=== PATIENT | male | born 1925 | race Caucasian/White ===

== ENCOUNTER 2017-08-24 15:55 | Inpatient (IN) ==
--- NOTE | 2017-08-24 16:54 | Emergency Department Note ---
Disposition Clinical Impression: CHF exacerbation Qualifiers: Heart failure type: unspecified Qualified Code(s): I50.9 - Heart failure, unspecified Chest pain Qualifiers: Chest pain type: unspecified Qualified Code(s): R07.9 - Chest pain, unspecified Disposition: Admitted As Inpatient Condition: Fair Referrals: Irving Gilbert DO [Primary Care Provider] - Forms: ED Satisfaction Letter Time of Disposition: 18:36 SOB HPI - General Chief Complaint: ED Shortness of Breath/Dyspnea Stated Complaint: SIGIFREDO, BI-LATERAL LEG EDEMA Time Seen by Provider: 08/24/17 16:30 Source: patient, family Mode of arrival: ambulatory Limitations: no limitations Nursing Notes Reviewed: Yes Vital Signs Reviewed: Yes - History of Present Illness Patient is an 89-year-old male who presents to [facility] ED with worsening difficulty breathing over the last day. Denies any nausea, vomiting, fever or chills. No recent cough or cold. Patient does have a history of congestive heart failure and quadruple bypass. States he had some chest pain yesterday. No current chest pain or shortness of breath with sitting. He is at 91% at rest. States he cannot take more than 10 steps without getting very short of breath. No abdominal pain, problems with urination or bowel movements. Patient states he was recently taken off multiple medications including lisinopril, metoprolol, hydrochlorothiazide. Pt Subjective Complaint: shortness of breath Onset (ago): day(s) Context: recent illness Severity: moderate Consistency/Duration: gradually worsening (1) Improves with: rest Worsens with: exertion Known history of: congestive heart failure Associated symptoms: Reports: chest pain. Denies: fever, cough, wheezing, nausea/vomiting, abdominal pain Treatment prior to arrival: none Cough present: No - Related Data Home oxygen amount: none Home Medications Medication Instructions Recorded Confirmed Tamsulosin [Flomax] 0.4 mg PO QAM 05/20/15 08/24/17 Acetaminophen [Tylenol] 650 mg PO QAM 08/24/17 08/24/17 Cholecalciferol (D-3) [Vitamin D] 1,000 unit PO DAILY 08/24/17 08/24/17 Ferrous Sulfate [Iron] 325 mg PO QAM 08/24/17 08/24/17 Omeprazole [PriLOSEC] 20 mg PO QAM 08/24/17 08/24/17 Allergies Allergy/AdvReac Type Severity Reaction Status Date / Time No Known Allergies Allergy Verified 05/19/15 18:15 All systems ED: reviewed and negative except as stated. Past Medical History - Past Medical History Attestation: Yes The following information was validated with the patient. Source: patient Medical history: Reports: arthritis, CHF, COPD, coronary artery disease, diabetes, GERD, GI bleed, hyperlipidemia, hypertension, myocardial infarction, osteoporosis, renal disease, venous stasis, other Surgical history: Reports: coronary bypass (CABG), herniorrhaphy, other (EGD. Colonoscopy.) Psychiatric history: Reports: no psych history - Social History Smoking Status: Never smoker Smokeless Tobacco Status: No Alcohol use: Reports: none Drug use: Reports: none Physical Exam - General Limitations: no limitations General appearance: alert - Head Head exam: atraumatic, normocephalic, normal inspection - Eye Eye exam: Present: normal appearance, EOMI - ENT ENT exam: normal exam, normal oropharynx, mucous membranes moist - Neck Neck exam: Present: normal inspection, full ROM, trachea midline - Chest Chest inspection: Present: normal inspection, symmetric chest wall rise - Respiratory Respiratory exam: Present: wheezes (Skin expiratory wheezes bilaterally) - Cardiovascular Cardiovascular exam: Present: regular rate, normal rhythm, normal heart sounds - Abdominal Exam Abdominal exam: Present: soft, Non-Tender. Absent: tenderness, distention, guarding, rebound, rigidity - Extremities Exam Extremities exam: Present: normal inspection, full ROM. Absent: tenderness, pedal edema - Neurological Exam Neurological exam: Present: alert, oriented X3 - Psychiatric Psychiatric exam: Present: normal affect, normal mood - Skin Skin exam: Present: warm, dry, intact, normal color Course Course Narrative: Patient seen and examined. Difficulty breathing over the last day. Patient with history of congestive heart failure. Suspect this is likely what is going on since he has had worsening lower extremity edema. Was also recently taken off his DEAN inhibitor, Metoprolol and HCTZ by his PCP. States they checked some test and then called him to take him off medications 2 or 3 weeks ago. Cardiopulmonary workup initiated. - Reevaluation(s) Reevaluation #1: Chest x-ray shows some pulmonary vascular congestion. BNP level was elevated in the 400s. Suspect congestive heart failure worsening. Since patient had an episode of chest pain yesterday, we will go ahead and admit for ACS workup as well as CHF exacerbation. I discussed with hospitalist Dr. Harris who has accepted patient for admission pending telemetry availability. I discussed with the management and there is telemetry beds available. Time: 18:35 Vital Signs Temperature 97.9 F 08/24/17 15:56 Pulse Rate 85 08/24/17 15:56 Respiratory Rate 19 08/24/17 15:56 Blood Pressure 181/98 08/24/17 15:56 O2 Sat by Pulse Oximetry 91 08/24/17 15:56 Temperature 97.9 F 08/24/17 15:56 Pulse Rate 69 08/24/17 18:25 Respiratory Rate 20 08/24/17 18:25 Blood Pressure 168/92 08/24/17 18:25 O2 Sat by Pulse Oximetry 96 08/24/17 18:25 Oxygen Delivery Oxygen Delivery Room Air Shortness of Breath/Dyspnea - Medical Records Medical records reviewed: Yes I reviewed the patient's medical records. - Lab Data Lab results reviewed: Yes I reviewed the patient's lab results. Result diagrams: 08/24/17 16:35 08/24/17 16:35 Lab Results 08/24/17 08/24/17 08/24/17 Range/Units 16:35 16:35 16:35 WBC 6.3 (4.3-11.1) K/mcL RBC 3.97 L (4.19-5.50) M/mcL Hgb 12.3 L (12.9-16.9) g/dL Hct 37.1 L (37.5-50.1) % MCV 93.5 (83.0-100.0) fL MCH 31.0 (28.0-33.3) pg MCHC 33.2 (31.6-35.5) g/dL RDW 12.3 (11.5-14.5) % Plt Count 140 (140-400) K/mcL MPV 9.9 (9.4-12.4) fL Immature Gran % 0.3 (0-4) % Seg Neutrophils % 69.9 % Lymphocytes % 17.3 % Monocytes % 9.8 % Eosinophils % 2.1 % Basophils % 0.6 % Neutrophils # 4.4 (1.6-8.9) K/mcL Lymphocytes # 1.1 (0.6-4.6) K/mcL Monocytes # 0.6 (0.0-1.3) K/mcL Eosinophils # 0.1 (0.0-0.6) K/mcL Basophils # 0.0 (0.0-0.2) K/mcL PT 11.3 (9.4-12.1) Seconds INR 1.1 APTT 29.3 (26.0-36.0) Seconds Sodium 138 (136-145) mEq/L Potassium 3.9 (3.5-5.1) mEq/L Chloride 106 (98-107) mEq/L Carbon Dioxide 24 (23-29) mEq/L BUN 18 (8-23) mg/dL Creatinine 0.87 (0.70-1.30) mg/dL Est GFR ( Amer) > 60 (> 60) Est GFR (Non-Af Amer) > 60 (> 60) BUN/Creatinine Ratio 21 (6-26) Glucose 127 H (70-105) mg/dL Calculated Osmolality 289 (280-300) Calcium 9.5 (8.6-10.3) mg/dL Troponin I < 0.03 (< 0.04) ng/mL B-Natriuretic Peptide (Less than 100) pg/mL 08/24/17 Range/Units 16:35 WBC (4.3-11.1) K/mcL RBC (4.19-5.50) M/mcL Hgb (12.9-16.9) g/dL Hct (37.5-50.1) % MCV (83.0-100.0) fL MCH (28.0-33.3) pg MCHC (31.6-35.5) g/dL RDW (11.5-14.5) % Plt Count (140-400) K/mcL MPV (9.4-12.4) fL Immature Gran % (0-4) % Seg Neutrophils % % Lymphocytes % % Monocytes % % Eosinophils % % Basophils % % Neutrophils # (1.6-8.9) K/mcL Lymphocytes # (0.6-4.6) K/mcL Monocytes # (0.0-1.3) K/mcL Eosinophils # (0.0-0.6) K/mcL Basophils # (0.0-0.2) K/mcL PT (9.4-12.1) Seconds INR APTT (26.0-36.0) Seconds Sodium (136-145) mEq/L Potassium (3.5-5.1) mEq/L Chloride (98-107) mEq/L Carbon Dioxide (23-29) mEq/L BUN (8-23) mg/dL Creatinine (0.70-1.30) mg/dL Est GFR ( Amer) (> 60) Est GFR (Non-Af Amer) (> 60) BUN/Creatinine Ratio (6-26) Glucose (70-105) mg/dL Calculated Osmolality (280-300) Calcium (8.6-10.3) mg/dL Troponin I (< 0.04) ng/mL B-Natriuretic Peptide 406 H (Less than 100) pg/mL - Radiology Data Radiology results reviewed: Yes I reviewed the patient's radiology results. Chest X-Ray 08/24/17 16:02 IMPRESSION: Pulmonary vascular congestion with no infiltrate or edema D/ / Speedy Peck MD / Speedy Peck MD Interpreting Provider: Speedy Peck MD - EKG Data EKG attestation: Yes I reviewed and interpreted this EKG. EKG results narrative: EKG done at 1604 shows normal sinus rhythm with a rate of [address] elevation or depression.
--- NOTE | 2017-08-24 16:57 | Emergency Department Note ---
Disposition Clinical Impression: CHF exacerbation Qualifiers: Heart failure type: unspecified Qualified Code(s): I50.9 - Heart failure, unspecified Disposition: Still a Patient Referrals: Irving Gilbert DO [Primary Care Provider] - Forms: ED Satisfaction Letter General Adult HPI - General Chief complaint: ED Shortness of Breath/Dyspnea Stated complaint: SIGIFREDO, BI-LATERAL LEG EDEMA Time Seen by Provider: 08/24/17 16:30 Source: patient, family Mode of arrival: ambulatory Limitations: no limitations - History of Present Illness Pain Scale: 0 - Related Data Home Medications Medication Instructions Recorded Confirmed Atorvastatin [Lipitor] 10 mg PO HS 05/20/15 12/04/15 Pantoprazole Sodium [Protonix] 40 mg PO DAILY 05/20/15 12/04/15 Tamsulosin [Flomax] 0.4 mg PO DAILY 05/20/15 12/04/15 metFORMIN [Glucophage] 500 mg PO BIDWM 05/20/15 12/04/15 Ascorbic Acid [Vitamin C] 1 tab PO DAILY 12/03/15 12/03/15 Donepezil [Aricept] 5 mg PO HS 12/04/15 12/04/15 Metoprolol [Lopressor] 25 mg PO BID 12/04/15 12/04/15 hydroCHLOROthiazide 12.5 mg PO DAILY 12/04/15 12/04/15 [Hydrochlorothiazide] Previous Rx's Medication Instructions Recorded Docusate [Colace] 100 mg PO BID #40 capsule 12/08/15 Ferrous Sulfate [Iron] 325 mg PO TID #90 capsule.er 12/08/15 Folic Acid 1 mg PO DAILY #30 tablet 12/08/15 Ipratropium/Albuterol Neb [Duoneb] 3 ml IH [id number] inhsol 12/08/15 Levofloxacin [Levaquin] 750 mg PO QTUTHSA #2 tablet 12/08/15 Oxycodone HCl 5 mg PO Q4H PRN #30 capsule 12/08/15 Sennosides/Docusate Sodium [Senna 1 each PO DAILY #20 tablet 12/08/15 Plus] Thiamine (B-1) [Vitamin B-1] 100 mg PO DAILY #30 tablet 12/08/15 Vitamin B Complex/Vit C/Vit E 1 each PO DAILY #30 tablet 07/26/16 [Stresstab] Allergies Allergy/AdvReac Type Severity Reaction Status Date / Time No Known Allergies Allergy Verified 05/19/15 18:15 Past Medical History - Past Medical History Medical history: Reports: arthritis, CHF, COPD, coronary artery disease, diabetes, GERD, GI bleed, hyperlipidemia, hypertension, myocardial infarction, osteoporosis, renal disease, venous stasis, other Surgical history: Reports: coronary bypass (CABG), herniorrhaphy, other (EGD. Colonoscopy.) Psychiatric history: Reports: no psych history - Social History Smoking Status: Never smoker Smokeless Tobacco Status: No Alcohol use: Reports: none Drug use: Reports: none Physical Exam - General Limitations: no limitations General appearance: alert Course - Reevaluation(s) Reevaluation #1: Attestation note I examined this patient and my medical decision-making was reviewed with the emergency medicine resident. I agree with the documented findings, disposition and treatment plan as described except to the extent set forth below. Patient seen with emergency medicine resident Dr. Radha Camarena, Please see a copy of his note for details of the H&P, ED evaluation, management and disposition. I have independently evaluated the patient and confirmed appropriate portions of the history and physical exam. Briefly: A 11-year-old male brought in by his daughters for leg swelling shortness of breath and dyspnea on exertion. Patient for unknown reasons was taken off his amlodipine and his heart score thiazide and he started experiencing symptoms of his congestive heart failure with swallowing dyspnea on exertion and decreased exertional tolerance. Patient has bibasilar rales and significant pitting edema to the mid vivas. EKG shows no acute ischemic changes troponin chest x-ray pending patient will be getting IV Lasix oxygen possibly nitroglycerin and admission. Providing 40 minutes critical care service for this patient. Admission disposition pending Time: 16:54 Vital Signs Temperature 97.9 F 08/24/17 15:56 Pulse Rate 85 08/24/17 15:56 Respiratory Rate 19 08/24/17 15:56 Blood Pressure 181/98 08/24/17 15:56 O2 Sat by Pulse Oximetry 91 08/24/17 15:56 Temperature 97.9 F 08/24/17 15:56 Pulse Rate 85 08/24/17 15:56 Respiratory Rate 19 08/24/17 15:56 Blood Pressure 181/98 08/24/17 15:56 O2 Sat by Pulse Oximetry 91 08/24/17 15:56 Oxygen Delivery Oxygen Delivery Room Air
[2017-08-24 16:59] LABS: Basophils % 0.6 %; Eosinophils # 0.1 K/mcL (0.0-0.6); Eosinophils % 2.1 %; Hematocrit 37.1 % (37.5-50.1); Hemoglobin 12.3 g/dL (12.9-16.9); Immature Granulocytes % 0.3 % (0-4); Lymphocytes # 1.1 K/mcL (0.6-4.6); Lymphocytes % 17.3 %; Mean Corpuscular HGB Conc 33.2 g/dL (31.6-35.5); Mean Corpuscular Volume 93.5 fL (83.0-100.0); Mean Platelet Volume 9.9 fL (9.4-12.4); Monocytes # 0.6 K/mcL (0.0-1.3); Monocytes % 9.8 %; Neutrophils # 4.4 K/mcL (1.6-8.9); Platelet Count 140 K/mcL (140-400); Red Blood Count 3.97 M/mcL (4.19-5.50); Red Cell Distribution Width 12.3 % (11.5-14.5); Segmented Neutrophils % 69.9 %
[2017-08-24 17:08] LABS: INR 1.1; Prothrombin Time 11.3 Seconds (9.4-12.1)
[2017-08-24 17:11] LABS: Activated Partial Thrombo Time 29.3 Seconds (26.0-36.0)
[2017-08-24 17:21] LABS: Blood Urea Nitrogen 18 mg/dL (8-23); Calcium 9.5 mg/dL (8.6-10.3); Carbon Dioxide 24 mEq/L (23-29); Chloride 106 mEq/L (98-107); Glucose 127 mg/dL (70-105); Osmolality,Calculated 289 (280-300); Potassium 3.9 mEq/L (3.5-5.1); Sodium 138 mEq/L (136-145); Troponin I < 0.03 ng/mL (< 0.04)
[2017-08-24 18:21] LABS: BUN/Creatinine Ratio 21 (6-26); eGFR For African Americans > 60 (> 60); eGFR For Non-African Americans > 60 (> 60)
[2017-08-24] MEDS ORDERED: hydrALAZINE 10 MG TABLET PO PRN (21:55)
[2017-08-24] MEDS ORDERED: Naloxone 0.4 MG/ML INJ IVP PRN (21:57)
--- NOTE | 2017-08-24 22:03 | Internal Med History&Physical ---
<Carmel Bower H - Last Filed: 08/24/17 21:53> Date of Encounter: 08/24/17 Time of Encounter: 21:53 Internal Medicine - H&P: HPI Admitted From: Emergency Dept Plans for Post Hospital Care: Home History of present illness: Mr. Ortiz is a 89 year old male with past medical history arthritis, CHF, COPD, CAD, DM 2, GERD, GI bleed, HLD, HTN, Hx of [place] with CABG 4. Patient presented to [facility] on 08/24/2017 with chief complaint of bilateral lower extremity swelling, SOB, and dyspnea on exertion. Patient states he woke this morning and noticed that his legs and ankles were swelling. He called his daughter who subsequently called his PCP. Patient states he was so short of breath he could barely take 10 steps without becoming winded. His PCP told him to present to the ED. Patient is a somewhat confusing historian. His daughter is at bedside and states that he may have some level of dementia. Patient denying orthopnea, nausea, or vomiting. He does report some chest wall tenderness approx. 2 days ago that was on his left side approximately located around the mid clavicular line at the lower sternal border. He states this pain was relieved by rubbing. He has denied chest pain since that time. Patient states that he has been having intermittent bouts of constipation and diarrhea. He states his last bowel movement was on Monday. He does report a history of black stool. His daughter said his PCP recently discontinued many medications. She is unsure what all was discontinued. She is sure that hydrochlorothiazide, metoprolol, and lisinopril were recently discontinued. She is unsure the reason. Patient has chronic history of A. fib. Xarelto was discontinued 5 years ago as patient had several bouts of lower GI bleeding. Patient also reports lower abdominal pain which she states is chronic in nature. His daughter states he has been worked up several times for this and nothing has been found. Patient's PCP is Dr. Gilbert. Currently, patient is resting comfortably. He states he feels much better after receiving medication in the emergency department. He says his shortness of breath has resolved in his lower extremity edema has improved. He denies any current chest pain, palpitations, shortness of breath, nausea, or vomiting. He denies diarrhea, constipation, dysuria, or hematuria. He does report urinary frequency. Patient complaining of nasal congestion which has been present for several weeks. His daughter thinks he has allergies. Past Med Surg Social Fam HX - Past Medical History Attestation: Yes The following information was validated with the patient. Source: patient, obtained from family Medical history: arthritis, CHF, COPD, coronary artery disease, diabetes, GERD, GI bleed, hyperlipidemia, hypertension, myocardial infarction, osteoporosis, renal disease, venous stasis, other Psychiatric history: no psych history - Past Surgical History Surgical History: coronary bypass (CABG), herniorrhaphy, other (EGD. Colonoscopy.) - Social History Smoking Status: Never smoker Smokeless Tobacco Status: No Alcohol use: none Drug use: none - Family History Father Living Status: Hx Family Cancer: Yes (Skin Cancer) Hx Family Neurologic Disorders: Yes (Stroke) Internal Medicine - H&P: Meds Tamsulosin [Flomax] 0.4 mg PO QAM 05/20/15 [History] Acetaminophen [Tylenol] 650 mg PO QAM 08/24/17 [History] Cholecalciferol (D-3) [Vitamin D] 1,000 unit PO DAILY 08/24/17 [History] Ferrous Sulfate [Iron] 325 mg PO QAM 08/24/17 [History] Omeprazole [PriLOSEC] 20 mg PO QAM 08/24/17 [History] 3 Allergy/AdvReac Type Severity Reaction Status Date / Time No Known Allergies Allergy Verified 05/19/15 18:15 All Systems PM: A 10-system review of systems was performed and is negative for pertinent findings except as documented above in the HPI. - Constitutional Constitutional: as per HPI, no chills, no fatigue, no fever(s), no night sweats , no weakness - EENT Ears: decreased hearing Nose, mouth and throat: nasal congestion, other (no LAD), no nasal discharge, no sinus pain, no sinus pressure, no sore throat - Cardiovascular Cardiovascular ROS IM: dyspnea on exertion, edema, no chest pain, no claudication, no diaphoresis, no dyspnea, no lightheadedness, no orthopnea, no palpitations, no paroxysmal nocturnal dyspnea - Respiratory Respiratory: dyspnea on exertion, no cough, no chest congestion, no excessive phlegm production - Gastrointestinal Gastrointestinal: abdominal pain, loose stools (reports history, although last BM was Monday), melena (unclear if current), no coffee ground emesis, no hematemesis, no hematochezia - Genitourinary Genitourinary ROS male: urinary frequency, no dysuria, no hematuria - Integumentary Integumentary IM: no erythema, no pruritus, no rash, no jaundice - Neurological Neurological ROS: no abnormal gait, no abnormal movements, no abnormal speech, no focal weakness, no loss of vision - Endocrine Endocrine IM: no cold intolerance, no heat intolerance - Constitutional Vitals: Temp Pulse Resp BP Pulse Ox 97.9 F 94 20 186/69 95 08/24/17 21:52 08/24/17 21:52 08/24/17 21:52 08/24/17 21:52 08/24/17 21:52 General appearance: Present: cooperative, A&O X 3, pleasant, no acute distress - Head Head exam: Present: atraumatic, normocephalic - Eye Eye exam: Present: PERRL, conjuntiva pink, sclera anicteric Pupils: Present: PERRL - ENT ENT exam: Present: normal oropharynx - Neck Neck exam general surgery: Present: supple, trachea midline. Absent: lymphadenopathy - Respiratory Respiratory exam: Present: decreased breath sounds (diminished breath sounds bilaterally), rales (bilateral bases). Absent: accessory muscle use, rhonchi, wheezes - Cardiovascular Cardiovascular exam: Present: irregular rhythm, +S1, +S2. Absent: diastolic murmur, gallop, rubs, systolic murmur - GI/Abdominal GI/Abdominal exam: Present: soft, tenderness (mild bilateral lower quadrant tenderness), no peritoneal signs. Absent: firm, guarding - Extremities Exam Extremities exam: Present: pedal edema (2 + pitting edema), warm, radial pulses palpable and symmetrical. Absent: calf tenderness, cyanotic - Neurological Exam Neurological exam: Present: CN II-XII intact, oriented X3, no focal deficits. Absent: pronater drift, facial droop, speech deficit - Skin Skin exam: Present: dry, intact Internal Med - H&P Results - Labs CBC & Chem 7: 08/24/17 16:35 08/24/17 16:35 - Assessment and plan (1) Hypertension Current Visit: No Status: Chronic Assessment and plan: Patient's blood pressure elevated most recent 170/80. Unclear why blood pressure medications were recently discontinued by PCP, Dr. Gilbert. -We will request medical records from his PCP. -Will start him on low-dose metoprolol BID, as patient was previously taking metoprolol, its unclear how long he has been off of this medication, so we will restart a low dose. -Hydralazine 5mg IV q6hr for SBP>160. Qualifiers: Hypertension type: essential hypertension Qualified Code(s): I10 - Essential (primary) hypertension (2) Atrial fibrillation Current Visit: No Status: Acute Assessment and plan: EKG demonstrates atrial fibrillation with an irregular rhythm, rate 83 BPM. -Patient rate controlled. No anticoagulation bc of history of multiple GI bleeds. Qualifiers: Atrial fibrillation type: chronic Qualified Code(s): I48.2 - Chronic atrial fibrillation (3) Coronary artery disease Current Visit: No Status: Chronic Assessment and plan: S/P CABG x4 in 2003. -BB, DEAN-I recently discontinued, unclear reason. -FU medical records. Qualifiers: Coronary Disease-Associated Artery/Lesion type: [place] artery [place] vs. transplanted heart: [place] heart Associated angina: without angina Qualified Code(s): I25.10 - Atherosclerotic heart disease of [place] coronary artery without angina pectoris (4) COPD (chronic obstructive pulmonary disease) with emphysema Current Visit: No Status: Chronic Assessment and plan: Patient reports PMHx of COPD, no smoking for 30 years. -Duonebs q4hrs PRN. Qualifiers: Emphysema type: unspecified Qualified Code(s): J43.9 - Emphysema, unspecified (5) DVT prophylaxis Current Visit: No Status: Acute Assessment and plan: History of mulitple GI bleed. -EPCDs (6) Acute exacerbation of CHF (congestive heart failure) Current Visit: Yes Status: Acute Assessment and plan: 89-year-old male with multiple medical comorbidities recently discontinued many medications by PCP including BB, DEAN-I, HCTZ. Unclear reason. -Patient had significant relief from Lasix given in the emergency department. -We will continue 40 mg IV furosemide daily. -Last echo 05/20/2015 demonstrates LVEF 50%, indeterminate diastolic function due to A. fib, aortic stenosis, mitral regurg, pulmonary hypertension. -Echocardiogram in the a.m. -Strict I&O's, daily weights. -Cardiac monitoring, continuous pulse oximetry. -Cardiac diet, fluid restriction to 1.5 L. Qualifiers: Heart failure type: unspecified Qualified Code(s): I50.9 - Heart failure, unspecified - Time Spent With Patient Total time spent is greater than 50% in coordination of care (as documented) at patient's floor/unit and/or counseling patient: <Milena Beltran - Last Filed: 08/25/17 02:03> Date of Encounter: 08/25/17 Internal Medicine - H&P: HPI History of present illness: Mr. Ortiz is a 89 year old male All Systems PM: A 10-system review of systems was performed and is negative for pertinent findings except as documented above in the HPI. - Constitutional Vitals: Temp Pulse Resp BP Pulse Ox 97.9 F 94 20 171/84 95 08/24/17 21:52 08/24/17 21:52 08/24/17 21:52 08/24/17 21:53 08/24/17 21:52 Internal Med - H&P Results - Labs CBC & Chem 7: 08/24/17 16:35 08/24/17 16:35 Labs: Cardiac Enzymes 08/24/17 Range/Units 22:38 Troponin I < 0.03 (< 0.04) ng/mL - Attending Attestation I have seen and examined this patient independently. I have discussed with resident physician Dr. Cartagena regarding the management plan. Agree with the documentation - Assessment and plan (1) Atrial fibrillation Current Visit: No Status: Acute Qualifiers: Atrial fibrillation type: chronic Qualified Code(s): I48.2 - Chronic atrial fibrillation (2) Hypertension Current Visit: No Status: Chronic Qualifiers: Hypertension type: essential hypertension Qualified Code(s): I10 - Essential (primary) hypertension (3) Coronary artery disease Current Visit: No Status: Chronic Qualifiers: Coronary Disease-Associated Artery/Lesion type: [place] artery [place] vs. transplanted heart: [place] heart Associated angina: without angina Qualified Code(s): I25.10 - Atherosclerotic heart disease of [place] coronary artery without angina pectoris (4) COPD (chronic obstructive pulmonary disease) with emphysema Current Visit: No Status: Chronic Qualifiers: Emphysema type: unspecified Qualified Code(s): J43.9 - Emphysema, unspecified (5) DVT prophylaxis Current Visit: No Status: Acute (6) Acute exacerbation of CHF (congestive heart failure) Current Visit: Yes Status: Acute Qualifiers: Heart failure type: unspecified Qualified Code(s): I50.9 - Heart failure, unspecified - Time Spent With Patient Total time spent is greater than 50% in coordination of care (as documented) at patient's floor/unit and/or counseling patient:
[2017-08-24] MEDS ORDERED: Ipratropium/Albuterol Neb 3 ML IH PRN (23:56)
[2017-08-25 04:27] LABS: Basophils % 0.8 %; Eosinophils # 0.2 K/mcL (0.0-0.6); Eosinophils % 3.5 %; Hemoglobin 11.2 g/dL (12.9-16.9); Immature Granulocytes % 0.4 % (0-4); Lymphocytes % 18.7 %; Mean Corpuscular HGB Conc 32.9 g/dL (31.6-35.5); Mean Corpuscular Hemoglobin 30.6 pg (28.0-33.3); Mean Corpuscular Volume 92.9 fL (83.0-100.0); Mean Platelet Volume 10.1 fL (9.4-12.4); Monocytes # 0.7 K/mcL (0.0-1.3); Monocytes % 12.7 %; Neutrophils # 3.3 K/mcL (1.6-8.9); Platelet Count 129 K/mcL (140-400); Red Blood Count 3.66 M/mcL (4.19-5.50); Red Cell Distribution Width 12.5 % (11.5-14.5); Segmented Neutrophils % 63.9 %
[2017-08-25 04:47] LABS: BUN/Creatinine Ratio 21 (6-26); Blood Urea Nitrogen 19 mg/dL (8-23); Calcium 8.9 mg/dL (8.6-10.3); Carbon Dioxide 24 mEq/L (23-29); Chloride 106 mEq/L (98-107); Glucose 151 mg/dL (70-105); Magnesium 1.7 mg/dL (1.6-2.6); Osmolality,Calculated 291 (280-300); Phosphorous 3.4 mg/dL (2.7-4.5); Potassium 3.9 mEq/L (3.5-5.1); Sodium 138 mEq/L (136-145); eGFR For African Americans > 60 (> 60); eGFR For Non-African Americans > 60 (> 60)
[2017-08-25 04:48] LABS: Troponin I < 0.03 ng/mL (< 0.04)
[2017-08-25] MEDS: Cholecalciferol (D-3) 1,000 UNIT TABLET PO SCH (08:19)
[2017-08-25] MEDS: Acetaminophen 325 MG TABLET PO SCH (08:19)
[2017-08-25] MEDS: Furosemide 40 MG/4 ML VIAL IVP SCH (08:20)
--- NOTE | 2017-08-25 12:18 | Internal Med Progress Note ---
Date of Encounter: 08/25/17 Time of Encounter: 12:11 - Assessment and plan (1) Acute exacerbation of CHF (congestive heart failure) Current Visit: Yes Status: Acute Assessment and plan: Patient had several medications that were discontinued by his PCP including beta ashish Burt and hydrochlorothiazide. Unclear reasoning. Patient had been experiencing lower extremity swelling. He was given IV Lasix in the emergency department which did give him significant relief. We will continue with Lasix 40 mg IV daily. Last echo 05/20/2015 did show EF of 50% indeterminate diastolic function due to A. fib aortic stenosis mitral regurg pulmonary hypertension. Echo ordered awaiting results Strict I's and O's daily weights Cardiac monitoring Low-sodium diet fluid restriction 1.5 L Qualifiers: Heart failure type: unspecified Qualified Code(s): I50.9 - Heart failure, unspecified (2) Atrial fibrillation Current Visit: No Status: Acute Assessment and plan: Rate is controlled continue with metoprolol. He is not on any anticoagulation due to past history of GI bleeds Qualifiers: Atrial fibrillation type: chronic Qualified Code(s): I48.2 - Chronic atrial fibrillation (3) Hypertension Current Visit: No Status: Chronic Assessment and plan: Blood pressure was elevated on presentation. Patient recently had blood pressure medication discontinued by PCP unsure of reasoning. Anticipating medical records from PCP Patient was previously taking metoprolol we will restart her on a low dose Hydralazine 5 mg IV as needed for systolic greater than 160-we will continue to monitor Qualifiers: Hypertension type: essential hypertension Qualified Code(s): I10 - Essential (primary) hypertension (4) Coronary artery disease Current Visit: No Status: Chronic Assessment and plan: S/P CABG x4 in 2003. Beta ashish and burt recently discontinued unsure of reasoning. We will resume beta ashish Continue cardiac monitoring Nitroglycerin as needed-no chest pain at this time Qualifiers: Coronary Disease-Associated Artery/Lesion type: [place] artery [place] vs. transplanted heart: [place] heart Associated angina: without angina Qualified Code(s): I25.10 - Atherosclerotic heart disease of [place] coronary artery without angina pectoris (5) COPD (chronic obstructive pulmonary disease) with emphysema Current Visit: No Status: Chronic Assessment and plan: No wheezing at this time appears stable continue with DuoNeb's as needed oxygen as needed Qualifiers: Emphysema type: unspecified Qualified Code(s): J43.9 - Emphysema, unspecified (6) DVT prophylaxis Current Visit: No Status: Acute Assessment and plan: History of mulitple GI bleed.-SCDs - Time Spent With Patient Total time spent is greater than 50% in coordination of care (as documented) at patient's floor/unit and/or counseling patient: - Subjective Interval history: Patient is new to me Denies any pain or discomfort Does not appear to be any resp distress. Feels like swelling improved - Constitutional Vitals: Temp Pulse Resp BP Pulse Ox 97.5 F L 59 16 128/64 95 08/25/17 11:14 08/25/17 11:14 08/25/17 11:14 08/25/17 11:14 08/25/17 11:14 General appearance: Present: cooperative, A&O X 3, pleasant, no acute distress - Eye Eye exam: Present: PERRL, conjuntiva pink, sclera anicteric Pupils: Present: PERRL - Neck Neck exam general surgery: Present: supple, trachea midline. Absent: lymphadenopathy - Respiratory Respiratory exam: Present: CTAB. Absent: accessory muscle use, rales, rhonchi, wheezes - Cardiovascular Cardiovascular exam: Present: RRR, +S1, +S2. Absent: diastolic murmur, gallop, rubs, systolic murmur - GI/Abdominal GI/Abdominal exam: Present: normal bowel sounds, soft, no peritoneal signs. Absent: distended, tenderness - Extremities Exam Extremities exam: Present: warm, radial pulses palpable and symmetrical. Absent : calf tenderness, cyanotic, pedal edema - Neurological Exam Neurological exam: Present: CN II-XII intact, oriented X3, no focal deficits. Absent: pronater drift, facial droop, speech deficit - Skin Skin exam: Present: dry, intact Internal Medicine: Result - Labs CBC & Chem 7: 08/25/17 03:26 08/25/17 03:26 Labs: Short CBC 08/25/17 Range/Units 03:26 WBC 5.2 (4.3-11.1) K/mcL Hgb 11.2 L (12.9-16.9) g/dL Hct 34.0 L (37.5-50.1) % Plt Count 129 L (140-400) K/mcL Neutrophils # 3.3 (1.6-8.9) K/mcL BMP 08/25/17 03:26 Sodium 138 Potassium 3.9 Chloride 106 Carbon Dioxide 24 BUN 19 Creatinine 0.92 Glucose 151 H Calcium 8.9 Cardiac Enzymes 08/25/17 Range/Units 03:26 Troponin I < 0.03 (< 0.04) ng/mL - ABG Interpretation ABG results: PT/INR, D-dimer PT 11.3 Seconds (9.4-12.1) 08/24/17 16:35 Consult Discharge Plan - Plan Referrals: Irving Gilbert DO [Primary Care Provider] -
[2017-08-25] MEDS ORDERED: D5% in Water 1,000 ML IVC PRN (13:36)
[2017-08-25] MEDS ORDERED: Dextrose Gel 15 GM/37.5 ML TUBE PO PRN ×2 (13:36)
[2017-08-25] MEDS ORDERED: *HR* Dextrose 50 % in Water (Syg) 50 ML SYRINGE IVP PRN (13:36)
[2017-08-25] MEDS: Insulin LISPRO 300 UNITS/3 ML VIAL SQ SCH ×2 (16:17→21:37)
[2017-08-26 04:53] LABS: Basophils % 0.5 %; Eosinophils # 0.1 K/mcL (0.0-0.6); Eosinophils % 1.4 %; Hematocrit 35.8 % (37.5-50.1); Hemoglobin 12.1 g/dL (12.9-16.9); Immature Granulocytes % 0.3 % (0-4); Lymphocytes # 0.8 K/mcL (0.6-4.6); Lymphocytes % 11.6 %; Mean Corpuscular HGB Conc 33.8 g/dL (31.6-35.5); Mean Corpuscular Hemoglobin 31.3 pg (28.0-33.3); Mean Corpuscular Volume 92.5 fL (83.0-100.0); Mean Platelet Volume 10.1 fL (9.4-12.4); Monocytes # 0.7 K/mcL (0.0-1.3); Monocytes % 9.8 %; Neutrophils # 5.1 K/mcL (1.6-8.9); Platelet Count 127 K/mcL (140-400); Red Blood Count 3.87 M/mcL (4.19-5.50); Red Cell Distribution Width 12.4 % (11.5-14.5); Segmented Neutrophils % 76.4 %
[2017-08-26 05:19] LABS: BUN/Creatinine Ratio 24 (6-26); Blood Urea Nitrogen 22 mg/dL (8-23); Calcium 9.1 mg/dL (8.6-10.3); Carbon Dioxide 25 mEq/L (23-29); Chloride 98 mEq/L (98-107); Glucose 199 mg/dL (70-105); Osmolality,Calculated 283 (280-300); Potassium 3.6 mEq/L (3.5-5.1); Sodium 132 mEq/L (136-145); eGFR For African Americans > 60 (> 60); eGFR For Non-African Americans > 60 (> 60)
[2017-08-26] MEDS ORDERED: Haloperidol Lactate 5 MG/ML VIAL IVP ONE (05:56)
[2017-08-26] MEDS: Furosemide 40 MG/4 ML VIAL IVP SCH (09:08)
[2017-08-26] MEDS: Cholecalciferol (D-3) 1,000 UNIT TABLET PO SCH (09:08)
[2017-08-26] MEDS: Acetaminophen 325 MG TABLET PO SCH (09:08)
[2017-08-26] MEDS: Insulin LISPRO 300 UNITS/3 ML VIAL SQ SCH ×4 (09:09→20:53)
--- NOTE | 2017-08-26 11:52 | Internal Med Progress Note ---
Date of Encounter: 08/26/17 Time of Encounter: 11:52 - Assessment and plan (1) Acute exacerbation of CHF (congestive heart failure) Current Visit: Yes Status: Acute Assessment and plan: Patient had several medications that were discontinued by his PCP approximate 3 weeks ago including beta ashish Burt and hydrochlorothiazide. Daughter states because patient was experiencing diarrhea Last echo 05/20/2015 did show EF of 50 % indeterminate diastolic function due to A. fib aortic stenosis mitral regurg pulmonary hypertension. Echo ordered awaiting results-we will resume metoprolol lisinopril and hydrochlorothiazide Strict I's and O's daily weights Cardiac monitoring Low-sodium diet fluid restriction 1.5 L Reviewed medication list with daughter lisinopril 5 mg and hydrochlorothiazide at 12.5 Qualifiers: Heart failure type: unspecified Qualified Code(s): I50.9 - Heart failure, unspecified (2) Atrial fibrillation Current Visit: No Status: Acute Assessment and plan: Rate is controlled continue with metoprolol. He is not on any anticoagulation due to past history of GI bleeds Qualifiers: Atrial fibrillation type: chronic Qualified Code(s): I48.2 - Chronic atrial fibrillation (3) Hypertension Current Visit: No Status: Chronic Assessment and plan: Blood pressure has been on the high side systolic around 160. We will resume home medications Hydralazine 5 mg IV as needed for systolic greater than 160-we will continue to monitor Qualifiers: Hypertension type: essential hypertension Qualified Code(s): I10 - Essential (primary) hypertension (4) Coronary artery disease Current Visit: No Status: Chronic Assessment and plan: S/P CABG x4 in 2003. Beta ashish and burt recently discontinued unsure of reasoning. We will resume Continue cardiac monitoring Nitroglycerin as needed-no chest pain at this time Qualifiers: Coronary Disease-Associated Artery/Lesion type: [place] artery [place] vs. transplanted heart: [place] heart Associated angina: without angina Qualified Code(s): I25.10 - Atherosclerotic heart disease of [place] coronary artery without angina pectoris (5) COPD (chronic obstructive pulmonary disease) with emphysema Current Visit: No Status: Chronic Assessment and plan: No wheezing at this time appears stable continue with DuoNeb's as needed oxygen as needed Qualifiers: Emphysema type: unspecified Qualified Code(s): J43.9 - Emphysema, unspecified (6) Confusion Current Visit: Yes Status: Acute Assessment and plan: 1 daughter explained that patient was being worked up for dementia as outpatient however he has not been officially diagnosed with dementia. He was given Ambien overnight which the daughter states has produced confusion in the past. I suspect this is related to medication as well as patient's past history of possible dementia We will avoid sedating medications place a sitter with the patient Patient's high risk for falls Monitor S PO2 We will check electrolytes, monitor glucose, monitor S PO2 Check urinalysis (7) DVT prophylaxis Current Visit: No Status: Acute Assessment and plan: History of mulitple GI bleed.-SCDs - Time Spent With Patient Total time spent is greater than 50% in coordination of care (as documented) at patient's floor/unit and/or counseling patient: - Subjective Interval history: According to family patient is more confused today. Daughter who is at bedside does express that patient has had episodes of confusion in the past however she feels he is more confused today. Patient did receive Ambien overnight daughter expresses that patient's very sensitive to medications and frequently becomes confused when receiving new medications. We did discuss patient's home medicines daughter states that approximately 3 weeks ago PCP discontinued patient's metoprolol lisinopril and hydrochlorothiazide because of patient was experiencing diarrhea. Since stopping medication she states "he has not been doing well" he presented with lower extremity swelling. We did diurese him and swelling has improved. Discussed with the daughter that we will place him back on his home medicines. We are waiting echo results. Patient will have a sitter overnight. Daughter verbalized understanding - Constitutional Vitals: Temp Pulse Resp BP Pulse Ox 97.6 F 66 14 144/80 97 08/26/17 11:28 08/26/17 11:28 08/26/17 11:28 08/26/17 11:28 08/26/17 11:28 General appearance: Present: cooperative, A&O X 3, pleasant, no acute distress - Head Head exam: Present: atraumatic, normocephalic - Eye Eye exam: Present: PERRL, conjuntiva pink, sclera anicteric Pupils: Present: PERRL - Neck Neck exam general surgery: Present: supple, trachea midline. Absent: lymphadenopathy - Respiratory Respiratory exam: Present: CTAB. Absent: accessory muscle use, rales, rhonchi, wheezes - Cardiovascular Cardiovascular exam: Present: RRR, +S1, +S2. Absent: diastolic murmur, gallop, rubs, systolic murmur - GI/Abdominal GI/Abdominal exam: Present: normal bowel sounds, soft, no peritoneal signs. Absent: distended, tenderness - Extremities Exam Extremities exam: Present: warm, radial pulses palpable and symmetrical. Absent : calf tenderness, cyanotic, pedal edema - Neurological Exam Neurological exam: Present: CN II-XII intact, oriented X3, no focal deficits. Absent: pronater drift, facial droop, speech deficit - Skin Skin exam: Present: dry, intact Internal Medicine: Result - Labs CBC & Chem 7: 08/26/17 03:44 08/26/17 14:37 Labs: Short CBC 08/26/17 Range/Units 03:44 WBC 6.6 (4.3-11.1) K/mcL Hgb 12.1 L (12.9-16.9) g/dL Hct 35.8 L (37.5-50.1) % Plt Count 127 L (140-400) K/mcL Neutrophils # 5.1 (1.6-8.9) K/mcL BMP 08/26/17 03:44 Sodium 132 L Potassium 3.6 Chloride 98 Carbon Dioxide 25 BUN 22 Creatinine 0.93 Glucose 199 H Calcium 9.1 - ABG Interpretation ABG results: PT/INR, D-dimer PT 11.3 Seconds (9.4-12.1) 08/24/17 16:35 Consult Discharge Plan - Plan Referrals: Irving Gilbert DO [Primary Care Provider] -
[2017-08-27 05:06] LABS: Basophils # 0.1 K/mcL (0.0-0.2); Basophils % 0.7 %; Eosinophils # 0.1 K/mcL (0.0-0.6); Eosinophils % 1.8 %; Hematocrit 36.2 % (37.5-50.1); Hemoglobin 12.2 g/dL (12.9-16.9); Immature Granulocytes % 0.6 % (0-4); Lymphocytes # 0.8 K/mcL (0.6-4.6); Lymphocytes % 11.3 %; Mean Corpuscular HGB Conc 33.7 g/dL (31.6-35.5); Mean Corpuscular Hemoglobin 30.5 pg (28.0-33.3); Mean Corpuscular Volume 90.5 fL (83.0-100.0); Mean Platelet Volume 9.7 fL (9.4-12.4); Monocytes # 0.7 K/mcL (0.0-1.3); Monocytes % 10.4 %; Neutrophils # 5.1 K/mcL (1.6-8.9); Platelet Count 145 K/mcL (140-400); Red Cell Distribution Width 12.1 % (11.5-14.5); Segmented Neutrophils % 75.2 %
[2017-08-27 05:25] LABS: BUN/Creatinine Ratio 28 (6-26); Blood Urea Nitrogen 26 mg/dL (8-23); Carbon Dioxide 25 mEq/L (23-29); Chloride 97 mEq/L (98-107); Glucose 202 mg/dL (70-105); Osmolality,Calculated 291 (280-300); Potassium 3.5 mEq/L (3.5-5.1); Sodium 135 mEq/L (136-145); eGFR For African Americans > 60 (> 60); eGFR For Non-African Americans > 60 (> 60)
[2017-08-27] MEDS ORDERED: Haloperidol Lactate 5 MG/ML VIAL ONE (09:03)
[2017-08-27] MEDS ORDERED: Haloperidol Lactate 5 MG/ML VIAL IVP ONE ×2 (09:14→09:47)
[2017-08-27] MEDS: Insulin LISPRO 300 UNITS/3 ML VIAL SQ SCH ×3 (09:17→16:39)
[2017-08-27] MEDS: Acetaminophen 325 MG TABLET PO SCH (09:58)
[2017-08-27] MEDS: Cholecalciferol (D-3) 1,000 UNIT TABLET PO SCH (09:58)
[2017-08-27] MEDS ORDERED: Ondansetron 4 MG/2 ML VIAL ONE (10:00)
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
[2017-08-27] MEDS ORDERED: Haloperidol Lactate 5 MG/ML VIAL IVP PRN (16:04)
[2017-08-27] MEDS: Furosemide 20 MG/2 ML VIAL IVP SCH (18:09)
[2017-08-27 20:29] LABS: Bilirubin,Urine Negative (Negative); Blood,Urine Negative (Negative); Clarity,Urine Clear (Clear); Color,Urine Yellow (Yellow); Glucose,Urine (UA) Normal (Normal); Ketones,Urine Negative (Negative); Leukocyte Esterase,Urine Negative (Negative); Nitrite,Urine Negative (Negative); Protein,Urine Negative (Neg-Trace); Specific Gravity,Urine 1.014 (1.010-1.025); Urobilinogen,Urine Normal (Normal)
[2017-08-28] MEDS: Acetaminophen 325 MG TABLET PO PRN ×2 (00:11→08:53)
[2017-08-28] MEDS: Insulin LISPRO 300 UNITS/3 ML VIAL SQ SCH ×4 (00:21→15:58)
[2017-08-28 08:25] LABS: Basophils % 0.7 %; Eosinophils # 0.1 K/mcL (0.0-0.6); Eosinophils % 2.2 %; Hematocrit 37.3 % (37.5-50.1); Hemoglobin 12.5 g/dL (12.9-16.9); Immature Granulocytes % 0.6 % (0-4); Lymphocytes # 0.8 K/mcL (0.6-4.6); Lymphocytes % 14.3 %; Mean Corpuscular HGB Conc 33.5 g/dL (31.6-35.5); Mean Corpuscular Volume 92.6 fL (83.0-100.0); Mean Platelet Volume 9.6 fL (9.4-12.4); Monocytes # 0.7 K/mcL (0.0-1.3); Monocytes % 12.6 %; Neutrophils # 3.8 K/mcL (1.6-8.9); Platelet Count 163 K/mcL (140-400); Red Blood Count 4.03 M/mcL (4.19-5.50); Red Cell Distribution Width 12.3 % (11.5-14.5); Segmented Neutrophils % 69.6 %
[2017-08-28 08:38] LABS: BUN/Creatinine Ratio 22 (6-26); Blood Urea Nitrogen 23 mg/dL (8-23); Carbon Dioxide 29 mEq/L (23-29); Chloride 99 mEq/L (98-107); Glucose 155 mg/dL (70-105); Osmolality,Calculated 287 (280-300); Potassium 3.9 mEq/L (3.5-5.1); Sodium 135 mEq/L (136-145); eGFR For African Americans > 60 (> 60); eGFR For Non-African Americans > 60 (> 60)
[2017-08-28] MEDS: Furosemide 20 MG/2 ML VIAL IVP SCH (08:53)
[2017-08-28] MEDS: Cholecalciferol (D-3) 1,000 UNIT TABLET PO SCH (08:53)
--- NOTE | 2017-08-28 15:52 | Discharge Summary ---
Orders not resulted at time of discharge: Pending orders 08/27/17 04:43 Vitamin B1 (Thiamine) Whole Bl AM 0400 Date of Encounter: 08/28/17 Time of Encounter: 15:51 - Discharge Diagnosis (1) Acute exacerbation of CHF (congestive heart failure) Priority: Primary Status: Acute Qualifiers: Heart failure type: unspecified Qualified Code(s): I50.9 - Heart failure, unspecified (2) Encephalopathy acute Priority: Secondary Status: Acute (3) Atrial fibrillation Priority: Secondary Status: Acute Qualifiers: Atrial fibrillation type: chronic Qualified Code(s): I48.2 - Chronic atrial fibrillation (4) Hypertension Priority: Secondary Status: Chronic Qualifiers: Hypertension type: essential hypertension Qualified Code(s): I10 - Essential (primary) hypertension (5) Coronary artery disease Priority: Secondary Status: Chronic Qualifiers: Coronary Disease-Associated Artery/Lesion type: [place] artery [place] vs. transplanted heart: [place] heart Associated angina: without angina Qualified Code(s): I25.10 - Atherosclerotic heart disease of [place] coronary artery without angina pectoris (6) COPD (chronic obstructive pulmonary disease) with emphysema Priority: Secondary Status: Chronic Qualifiers: Emphysema type: unspecified Qualified Code(s): J43.9 - Emphysema, unspecified Hospital course: Mr. Ortiz is a 89 year old male past medical history atrial fibrillation CHF hypertension CABG CAD-COPD GERD GI bleed patient originally presented to the [facility] 08/24/2017 with chief complaint of bilateral lower 70 swelling source of breath and dyspnea on exertion. According to his daughter and tube depatcher patient has been on medications for his heart for years however he was recently discontinued by his primary care doctor. He has not been taking his beta ashish lisinopril or hydrochlorothiazide. Apparently he was experiencing diarrhea and there was concern that these may be contributing to his diarrhea. He was given IV Lasix which did help resolve his lower extremities edema and improve his breathing. Kidney function was stable. Repeat echo was unchanged from previous. Patient did have episode of confusion he apparently received some Ambien and became confused. The confusion lasted approxi-48 hours. There was no infectious source CT of head was negative for any intracranial on normality. Chest x-ray did show some mild pulmonary congestion. Patient was given Haldol which did calm him. Continued with diuresing and oxygen support. Patient is back to baseline today alert and appropriate ambulating without difficulty. Daughter says that his is his normal baseline. Patient was seen by PT and OT with no needs upon discharge. He does reside with his daughter who assist patient with his medications as well as care. He does have home oxygen he did complete a walk test which he continued to qualify. His vital signs are stable lab work is unremarkable. I did resume all patient's home medications including the medicines that were stopped. I advised the patient's daughter to follow-up with primary care physician and to continue with diuretic. Daughter verbalizes understanding patient is ready for discharge Discharge discussed with: patient, family - Time Spent with Patient Total time spent providing and/or coordinating discharge services: - Discharge Medications Prescriptions: hydroCHLOROthiazide [Hydrochlorothiazide] 12.5 mg PO DAILY #30 tablet Lisinopril [Zestril] 5 mg PO DAILY #30 tablet Metoprolol [Lopressor] 12.5 mg PO BID #60 tablet Home Medications: Tamsulosin [Flomax] 0.4 mg PO QAM 05/20/15 [History] Acetaminophen [Tylenol] 650 mg PO PRN PRN 08/24/17 [History] Cholecalciferol (D-3) [Vitamin D] 1,000 unit PO DAILY 08/24/17 [History] Ferrous Sulfate [Iron] 325 mg PO QAM 08/24/17 [History] Omeprazole [PriLOSEC] 20 mg PO QAM 08/24/17 [History] Lisinopril [Zestril] 5 mg PO DAILY #30 tablet 08/28/17 [Rx] Metoprolol [Lopressor] 12.5 mg PO BID #60 tablet 08/28/17 [Rx] hydroCHLOROthiazide [Hydrochlorothiazide] 12.5 mg PO DAILY #30 tablet 08/28/17 [ Rx] Allergies/Adverse Reactions: 3 Allergy/AdvReac Type Severity Reaction Status Date / Time Opioids - Morphine Analogues AdvReac Hallucinati Verified 08/27/17 23:54 ng Zolpidem [From Ambien] AdvReac Hallucinati Verified 08/27/17 23:53 ng Date of admission: 08/25/17 02:04 Primary care physician: Irving Gilbert DO Consults: 08/25/17 09:53 Consult to Physical Therapy [CONS] Routine Comment: Evaluate, develop and implement POC Reason for Consult: unsteady gait Does patient have active BEDREST order?: No Is patient medically & hemodynamically stable?: Yes Patient assessed for mobility or mobilized this visit?: No Discharging clinician: Elena Hi Anticipated date of discharge: 08/28/17 - Constitutional Vitals: Temp Pulse Resp BP Pulse Ox 98.3 F 62 14 101/41 98 08/28/17 11:49 08/28/17 13:33 08/28/17 11:49 08/28/17 13:33 08/28/17 13:33 General appearance: Present: cooperative, A&O X 3, pleasant - Head Head exam: Present: atraumatic, normocephalic - Eye Eye exam: Present: PERRL, conjuntiva pink, sclera anicteric Pupils: Present: PERRL - Neck Neck exam general surgery: Present: supple, trachea midline. Absent: lymphadenopathy - Respiratory Respiratory exam: Present: CTAB. Absent: accessory muscle use, rales, rhonchi, wheezes - Cardiovascular Cardiovascular exam: Present: RRR, +S1, +S2. Absent: diastolic murmur, gallop, rubs, systolic murmur - GI/Abdominal GI/Abdominal exam: Present: normal bowel sounds, soft, no peritoneal signs. Absent: distended, tenderness - Extremities Exam Extremities exam: Present: warm, radial pulses palpable and symmetrical. Absent : calf tenderness, cyanotic, pedal edema - Neurological Exam Neurological exam: Present: CN II-XII intact, oriented X3, no focal deficits. Absent: pronater drift, facial droop, speech deficit - Skin Skin exam: Present: dry, intact - Patient Status Disposition: Home, Self-Care Condition: Fair Functional capacity at discharge: uses cane/walker Overall status at discharge: patient is progressing back to baseline - Discharge Instructions Instructions: Metoprolol (By mouth), Lisinopril (By mouth), Hydrochlorothiazide (By mouth) Follow Up With: Irving Gilbert DO [Primary Care Provider] - - Diet and Activity Activity: wear oxygen at all times Diet: advance to your usual diet
[2017-08-28 16:00] VITALS: BP 108/56
--- NOTE | 2017-09-01 08:20 | Electrocardiograph Report ---
[address] [place] [address] Test Date: 2017-08-24 Pat Name: Caio Ortiz Department: 104 Room: 3B Gender: M [place] Guide: DANIELLE : 1925 Requested By: Jabari Blum Order Number: [id number] Reading MD: Sergio Prajapati Measurements Intervals [place] Rate: 83 P: 76 DE: 229 QRS: 96 QRSD: 90 T: 32 QT: 372 QTc: 412 Interpretive Statements SINUS RHYTHM WITH FIRST DEGREE AV BLOCK PVC BORDERLINE RIGHT AXIS DEVIATION SEPTAL MYOCARDIAL INFARCTION, OF INDETERMINATE AGE Electronically Signed On 09-01-2017 8:18:18 EDT by Sergio Prajapati
== END 2017-08-28 17:01 | disposition home or self-care (01) | DRG 291 ==
LOC: EMEROO 15:55 → 3BNU 15:55
PROVIDERS: ADMIT Internal Medicine; ATTEND Registered Nurse